=== PATIENT | female | born 1960 | race Caucasian/White ===

== ENCOUNTER → 2021-04-25 | Outpatient (CLI) | payer MEDICARE, BC ==
[~2021-04-25] MED LIST: DAPT500V6 IV; DICY10CA3 PO; INSU100I66 SC; INSU100V35 SC; METR500T PO; MULT-658 PO; OMEP-110 PO; TACR1CAP2 PO; TACR1CAP5 PO; [UNRECOGNIZED DRUG - OTHER] PO
== END | disposition home or self-care (01) ==
LOC: WOUND 13:47
PROVIDERS: ATTEND Internal Medicine
DX: E11.621 Type 2 diabetes mellitus with foot ulcer (principal); L97.412 Non-pressure chronic ulcer of right heel and midfoot with fat layer exposed; L97.512 Non-pressure chronic ulcer of other part of right foot with fat layer exposed; E11.610 Type 2 diabetes mellitus with diabetic neuropathic arthropathy; E11.40 Type 2 diabetes mellitus with diabetic neuropathy, unspecified; D63.1 Anemia in chronic kidney disease; E11.22 Type 2 diabetes mellitus with diabetic chronic kidney disease; N18.6 End stage renal disease; L02.611 Cutaneous abscess of right foot; E11.69 Type 2 diabetes mellitus with other specified complication; M86.8X7 Other osteomyelitis, ankle and foot; A49.01 Methicillin susceptible Staphylococcus aureus infection, unspecified site; Z99.2 Dependence on renal dialysis; Z89.422 Acquired absence of other left toe(s); Z89.421 Acquired absence of other right toe(s); Z89.412 Acquired absence of left great toe; Z92.25 Personal history of immunosuppression therapy; Z20.822 Contact with and (suspected) exposure to COVID-19; Z94.0 Kidney transplant status; Z79.4 Long term (current) use of insulin
CPT/HCPCS: 11042; G0463

== ENCOUNTER 2021-05-02 12:39 | Outpatient (CLI) | payer MEDICARE, BC | END 2021-05-02 23:59 | disposition home or self-care (01) | LOC: WOUND 12:39 | PROVIDERS: ATTEND Internal Medicine | DX: E11.621 Type 2 diabetes mellitus with foot ulcer (principal); L97.412 Non-pressure chronic ulcer of right heel and midfoot with fat layer exposed; L97.512 Non-pressure chronic ulcer of other part of right foot with fat layer exposed; E11.610 Type 2 diabetes mellitus with diabetic neuropathic arthropathy; E11.40 Type 2 diabetes mellitus with diabetic neuropathy, unspecified; D63.1 Anemia in chronic kidney disease; E11.22 Type 2 diabetes mellitus with diabetic chronic kidney disease; N18.6 End stage renal disease; E11.69 Type 2 diabetes mellitus with other specified complication; M86.8X7 Other osteomyelitis, ankle and foot; A49.01 Methicillin susceptible Staphylococcus aureus infection, unspecified site; L84 Corns and callosities; Z99.2 Dependence on renal dialysis; Z89.422 Acquired absence of other left toe(s); Z89.421 Acquired absence of other right toe(s); Z89.412 Acquired absence of left great toe; Z20.822 Contact with and (suspected) exposure to COVID-19; Z92.25 Personal history of immunosuppression therapy; Z79.4 Long term (current) use of insulin; Z94.0 Kidney transplant status | CPT/HCPCS: 11042 ==

== ENCOUNTER → 2021-05-04 | Outpatient (CLI) | payer MEDICARE, BC | END | disposition home or self-care (01) | LOC: WOUND 12:54 | PROVIDERS: ATTEND Internal Medicine | DX: E11.621 Type 2 diabetes mellitus with foot ulcer (principal); L97.412 Non-pressure chronic ulcer of right heel and midfoot with fat layer exposed; L97.512 Non-pressure chronic ulcer of other part of right foot with fat layer exposed; L02.611 Cutaneous abscess of right foot; E11.610 Type 2 diabetes mellitus with diabetic neuropathic arthropathy; E11.40 Type 2 diabetes mellitus with diabetic neuropathy, unspecified; D63.1 Anemia in chronic kidney disease; E11.22 Type 2 diabetes mellitus with diabetic chronic kidney disease; N18.6 End stage renal disease; E11.69 Type 2 diabetes mellitus with other specified complication; M86.8X7 Other osteomyelitis, ankle and foot; A49.01 Methicillin susceptible Staphylococcus aureus infection, unspecified site; Z99.2 Dependence on renal dialysis; Z89.422 Acquired absence of other left toe(s); Z89.421 Acquired absence of other right toe(s); Z89.412 Acquired absence of left great toe; Z92.25 Personal history of immunosuppression therapy; Z20.822 Contact with and (suspected) exposure to COVID-19; Z79.4 Long term (current) use of insulin | CPT/HCPCS: 97602 ==

== ENCOUNTER → 2021-05-06 | Outpatient (CLI) | payer MEDICARE, BC | END | disposition home or self-care (01) | LOC: WOUND 13:24 | PROVIDERS: ATTEND Internal Medicine Cardiovascular Disease | DX: E11.621 Type 2 diabetes mellitus with foot ulcer (principal); L97.411 Non-pressure chronic ulcer of right heel and midfoot limited to breakdown of skin; L97.512 Non-pressure chronic ulcer of other part of right foot with fat layer exposed; E11.610 Type 2 diabetes mellitus with diabetic neuropathic arthropathy; E11.40 Type 2 diabetes mellitus with diabetic neuropathy, unspecified; D63.1 Anemia in chronic kidney disease; E11.22 Type 2 diabetes mellitus with diabetic chronic kidney disease; N18.6 End stage renal disease; E11.69 Type 2 diabetes mellitus with other specified complication; M86.8X7 Other osteomyelitis, ankle and foot; A49.01 Methicillin susceptible Staphylococcus aureus infection, unspecified site; Z99.2 Dependence on renal dialysis; Z89.422 Acquired absence of other left toe(s); Z89.421 Acquired absence of other right toe(s); Z89.412 Acquired absence of left great toe; Z92.25 Personal history of immunosuppression therapy; Z20.822 Contact with and (suspected) exposure to COVID-19; Z79.4 Long term (current) use of insulin; Z94.0 Kidney transplant status | CPT/HCPCS: G0463 ==

== ENCOUNTER → 2021-05-11 | Outpatient (CLI) | payer MEDICARE, BC | END | disposition home or self-care (01) | LOC: WOUND 12:26 | PROVIDERS: ATTEND Internal Medicine | DX: E11.621 Type 2 diabetes mellitus with foot ulcer (principal); L97.415 Non-pressure chronic ulcer of right heel and midfoot with muscle involvement without evidence of necrosis; L97.512 Non-pressure chronic ulcer of other part of right foot with fat layer exposed; E11.610 Type 2 diabetes mellitus with diabetic neuropathic arthropathy; E11.40 Type 2 diabetes mellitus with diabetic neuropathy, unspecified; D63.1 Anemia in chronic kidney disease; E11.22 Type 2 diabetes mellitus with diabetic chronic kidney disease; N18.6 End stage renal disease; E11.69 Type 2 diabetes mellitus with other specified complication; M86.8X7 Other osteomyelitis, ankle and foot; A49.01 Methicillin susceptible Staphylococcus aureus infection, unspecified site; L84 Corns and callosities; Z99.2 Dependence on renal dialysis; Z89.422 Acquired absence of other left toe(s); Z89.421 Acquired absence of other right toe(s); Z89.412 Acquired absence of left great toe; Z92.25 Personal history of immunosuppression therapy; Z20.822 Contact with and (suspected) exposure to COVID-19; Z79.4 Long term (current) use of insulin; Z94.0 Kidney transplant status | CPT/HCPCS: 11043 ==

== ENCOUNTER 2021-05-13 12:53 | Outpatient (CLI) | payer MEDICARE, BC | END 2021-05-13 23:59 | disposition home or self-care (01) | LOC: WOUND 12:53 | PROVIDERS: ATTEND Internal Medicine | DX: E11.621 Type 2 diabetes mellitus with foot ulcer (principal); L97.411 Non-pressure chronic ulcer of right heel and midfoot limited to breakdown of skin; L97.512 Non-pressure chronic ulcer of other part of right foot with fat layer exposed; L02.611 Cutaneous abscess of right foot; L84 Corns and callosities; E11.40 Type 2 diabetes mellitus with diabetic neuropathy, unspecified; E11.610 Type 2 diabetes mellitus with diabetic neuropathic arthropathy; E11.69 Type 2 diabetes mellitus with other specified complication; M86.8X7 Other osteomyelitis, ankle and foot; E11.22 Type 2 diabetes mellitus with diabetic chronic kidney disease; D63.8 Anemia in other chronic diseases classified elsewhere; N18.6 End stage renal disease; E78.00 Pure hypercholesterolemia, unspecified; D63.1 Anemia in chronic kidney disease; A49.01 Methicillin susceptible Staphylococcus aureus infection, unspecified site; Z94.83 Pancreas transplant status; Z86.19 Personal history of other infectious and parasitic diseases; Z94.0 Kidney transplant status; Z99.2 Dependence on renal dialysis; Z89.422 Acquired absence of other left toe(s); Z89.412 Acquired absence of left great toe; Z89.421 Acquired absence of other right toe(s); Z79.4 Long term (current) use of insulin; Z79.899 Other long term (current) drug therapy; Z20.822 Contact with and (suspected) exposure to COVID-19 | CPT/HCPCS: G0463 ==

== ENCOUNTER 2021-05-16 12:45 | Outpatient (CLI) | payer MEDICARE, BC | END 2021-05-16 23:59 | disposition home or self-care (01) | LOC: WOUND 12:45 | PROVIDERS: ATTEND Internal Medicine | DX: E11.621 Type 2 diabetes mellitus with foot ulcer (principal); L97.411 Non-pressure chronic ulcer of right heel and midfoot limited to breakdown of skin; L97.512 Non-pressure chronic ulcer of other part of right foot with fat layer exposed; L84 Corns and callosities; E11.40 Type 2 diabetes mellitus with diabetic neuropathy, unspecified; E11.610 Type 2 diabetes mellitus with diabetic neuropathic arthropathy; E11.69 Type 2 diabetes mellitus with other specified complication; M86.8X7 Other osteomyelitis, ankle and foot; E11.22 Type 2 diabetes mellitus with diabetic chronic kidney disease; D63.8 Anemia in other chronic diseases classified elsewhere; N18.6 End stage renal disease; E78.00 Pure hypercholesterolemia, unspecified; D63.1 Anemia in chronic kidney disease; A49.01 Methicillin susceptible Staphylococcus aureus infection, unspecified site; Z94.83 Pancreas transplant status; Z86.19 Personal history of other infectious and parasitic diseases; Z94.0 Kidney transplant status; Z99.2 Dependence on renal dialysis; Z89.422 Acquired absence of other left toe(s); Z89.412 Acquired absence of left great toe; Z89.421 Acquired absence of other right toe(s); Z79.4 Long term (current) use of insulin; Z79.899 Other long term (current) drug therapy; Z20.822 Contact with and (suspected) exposure to COVID-19 | CPT/HCPCS: G0463 ==

== ENCOUNTER 2021-05-18 12:47 | Outpatient (CLI) | payer MEDICARE, BC | END 2021-05-18 23:59 | disposition home or self-care (01) | LOC: WOUND 12:47 | PROVIDERS: ATTEND Internal Medicine | DX: E11.621 Type 2 diabetes mellitus with foot ulcer (principal); L97.411 Non-pressure chronic ulcer of right heel and midfoot limited to breakdown of skin; L97.512 Non-pressure chronic ulcer of other part of right foot with fat layer exposed; E11.610 Type 2 diabetes mellitus with diabetic neuropathic arthropathy; E11.40 Type 2 diabetes mellitus with diabetic neuropathy, unspecified; D63.1 Anemia in chronic kidney disease; E11.22 Type 2 diabetes mellitus with diabetic chronic kidney disease; N18.6 End stage renal disease; E11.69 Type 2 diabetes mellitus with other specified complication; M86.8X7 Other osteomyelitis, ankle and foot; A49.01 Methicillin susceptible Staphylococcus aureus infection, unspecified site; L84 Corns and callosities; Z99.2 Dependence on renal dialysis; Z89.422 Acquired absence of other left toe(s); Z89.421 Acquired absence of other right toe(s); Z89.412 Acquired absence of left great toe; Z92.25 Personal history of immunosuppression therapy; Z20.822 Contact with and (suspected) exposure to COVID-19; Z79.4 Long term (current) use of insulin; Z94.0 Kidney transplant status | CPT/HCPCS: 97597 ==

== ENCOUNTER → 2021-05-20 | Outpatient (CLI) | payer MEDICARE, BC | END | disposition home or self-care (01) | LOC: WOUND 12:42 | PROVIDERS: ATTEND Internal Medicine | DX: E11.621 Type 2 diabetes mellitus with foot ulcer (principal); L97.411 Non-pressure chronic ulcer of right heel and midfoot limited to breakdown of skin; L97.512 Non-pressure chronic ulcer of other part of right foot with fat layer exposed; E11.610 Type 2 diabetes mellitus with diabetic neuropathic arthropathy; E11.40 Type 2 diabetes mellitus with diabetic neuropathy, unspecified; D63.1 Anemia in chronic kidney disease; E11.22 Type 2 diabetes mellitus with diabetic chronic kidney disease; N18.6 End stage renal disease; E11.69 Type 2 diabetes mellitus with other specified complication; M86.8X7 Other osteomyelitis, ankle and foot; A49.01 Methicillin susceptible Staphylococcus aureus infection, unspecified site; L84 Corns and callosities; Z99.2 Dependence on renal dialysis; Z89.422 Acquired absence of other left toe(s); Z89.421 Acquired absence of other right toe(s); Z89.412 Acquired absence of left great toe; Z20.822 Contact with and (suspected) exposure to COVID-19; Z79.4 Long term (current) use of insulin | CPT/HCPCS: G0463 ==

== ENCOUNTER → 2021-05-24 | Outpatient (CLI) | payer MEDICARE, BC | END | disposition home or self-care (01) | LOC: WOUND 14:35 | PROVIDERS: ATTEND Nurse Practitioner Family | DX: E11.621 Type 2 diabetes mellitus with foot ulcer (principal); L97.411 Non-pressure chronic ulcer of right heel and midfoot limited to breakdown of skin; L97.512 Non-pressure chronic ulcer of other part of right foot with fat layer exposed; L02.611 Cutaneous abscess of right foot; E11.610 Type 2 diabetes mellitus with diabetic neuropathic arthropathy; E11.40 Type 2 diabetes mellitus with diabetic neuropathy, unspecified; D63.1 Anemia in chronic kidney disease; E11.22 Type 2 diabetes mellitus with diabetic chronic kidney disease; N18.6 End stage renal disease; E11.69 Type 2 diabetes mellitus with other specified complication; M86.8X7 Other osteomyelitis, ankle and foot; A49.01 Methicillin susceptible Staphylococcus aureus infection, unspecified site; L84 Corns and callosities; Z99.2 Dependence on renal dialysis; Z89.422 Acquired absence of other left toe(s); Z89.421 Acquired absence of other right toe(s); Z89.412 Acquired absence of left great toe; Z20.822 Contact with and (suspected) exposure to COVID-19; Z92.25 Personal history of immunosuppression therapy; Z79.4 Long term (current) use of insulin; Z94.0 Kidney transplant status | CPT/HCPCS: 97597 ==

== ENCOUNTER 2021-05-27 12:52 | Outpatient (CLI) | payer MEDICARE, BC | END 2021-05-27 23:59 | disposition home or self-care (01) | LOC: WOUND 12:52 | PROVIDERS: ATTEND Internal Medicine | DX: E11.621 Type 2 diabetes mellitus with foot ulcer (principal); L97.411 Non-pressure chronic ulcer of right heel and midfoot limited to breakdown of skin; L97.512 Non-pressure chronic ulcer of other part of right foot with fat layer exposed; E11.610 Type 2 diabetes mellitus with diabetic neuropathic arthropathy; E11.40 Type 2 diabetes mellitus with diabetic neuropathy, unspecified; D63.1 Anemia in chronic kidney disease; E11.22 Type 2 diabetes mellitus with diabetic chronic kidney disease; N18.6 End stage renal disease; E11.69 Type 2 diabetes mellitus with other specified complication; M86.8X7 Other osteomyelitis, ankle and foot; A49.01 Methicillin susceptible Staphylococcus aureus infection, unspecified site; L84 Corns and callosities; Z99.2 Dependence on renal dialysis; Z89.422 Acquired absence of other left toe(s); Z89.421 Acquired absence of other right toe(s); Z89.412 Acquired absence of left great toe; Z20.822 Contact with and (suspected) exposure to COVID-19; Z92.25 Personal history of immunosuppression therapy; Z79.4 Long term (current) use of insulin; Z94.0 Kidney transplant status | CPT/HCPCS: G0463 ==

== ENCOUNTER 2021-06-07 12:55 | Outpatient (CLI) | payer MEDICARE, BC | END 2021-06-07 23:59 | disposition home or self-care (01) | LOC: WOUND 12:55 | PROVIDERS: ATTEND Nurse Practitioner Family | DX: E11.621 Type 2 diabetes mellitus with foot ulcer (principal); L97.411 Non-pressure chronic ulcer of right heel and midfoot limited to breakdown of skin; L97.512 Non-pressure chronic ulcer of other part of right foot with fat layer exposed; L02.611 Cutaneous abscess of right foot; E11.610 Type 2 diabetes mellitus with diabetic neuropathic arthropathy; E11.40 Type 2 diabetes mellitus with diabetic neuropathy, unspecified; D63.1 Anemia in chronic kidney disease; E11.22 Type 2 diabetes mellitus with diabetic chronic kidney disease; N18.6 End stage renal disease; E11.69 Type 2 diabetes mellitus with other specified complication; M86.8X7 Other osteomyelitis, ankle and foot; A49.01 Methicillin susceptible Staphylococcus aureus infection, unspecified site; L84 Corns and callosities; Z99.2 Dependence on renal dialysis; Z89.422 Acquired absence of other left toe(s); Z89.421 Acquired absence of other right toe(s); Z89.412 Acquired absence of left great toe; Z20.822 Contact with and (suspected) exposure to COVID-19; Z92.25 Personal history of immunosuppression therapy; Z79.4 Long term (current) use of insulin; Z94.0 Kidney transplant status | CPT/HCPCS: 15275; Q4133 ==

== ENCOUNTER 2021-06-14 15:24 | Outpatient (CLI) | payer MEDICARE, BC | END 2021-06-14 23:59 | disposition home or self-care (01) | LOC: WOUND 15:24 | PROVIDERS: ATTEND Nurse Practitioner Family | DX: E11.621 Type 2 diabetes mellitus with foot ulcer (principal); L97.512 Non-pressure chronic ulcer of other part of right foot with fat layer exposed; L97.411 Non-pressure chronic ulcer of right heel and midfoot limited to breakdown of skin; L02.611 Cutaneous abscess of right foot; L84 Corns and callosities; E11.40 Type 2 diabetes mellitus with diabetic neuropathy, unspecified; E11.610 Type 2 diabetes mellitus with diabetic neuropathic arthropathy; E11.69 Type 2 diabetes mellitus with other specified complication; M86.8X7 Other osteomyelitis, ankle and foot; E11.22 Type 2 diabetes mellitus with diabetic chronic kidney disease; D63.8 Anemia in other chronic diseases classified elsewhere; N18.6 End stage renal disease; E78.00 Pure hypercholesterolemia, unspecified; D63.1 Anemia in chronic kidney disease; A49.01 Methicillin susceptible Staphylococcus aureus infection, unspecified site; Z94.83 Pancreas transplant status; Z86.19 Personal history of other infectious and parasitic diseases; Z94.0 Kidney transplant status; Z99.2 Dependence on renal dialysis; Z89.422 Acquired absence of other left toe(s); Z89.412 Acquired absence of left great toe; Z89.421 Acquired absence of other right toe(s); Z79.4 Long term (current) use of insulin; Z79.899 Other long term (current) drug therapy; Z20.822 Contact with and (suspected) exposure to COVID-19 | CPT/HCPCS: 15275; Q4133 ==

== ENCOUNTER 2021-06-21 14:45 | Outpatient (CLI) | payer MEDICARE, BC | END 2021-06-21 23:59 | disposition home or self-care (01) | LOC: WOUND 14:45 | PROVIDERS: ATTEND Nurse Practitioner Family | DX: E11.621 Type 2 diabetes mellitus with foot ulcer (principal); L97.512 Non-pressure chronic ulcer of other part of right foot with fat layer exposed; L97.411 Non-pressure chronic ulcer of right heel and midfoot limited to breakdown of skin; L02.611 Cutaneous abscess of right foot; L84 Corns and callosities; E11.40 Type 2 diabetes mellitus with diabetic neuropathy, unspecified; E11.610 Type 2 diabetes mellitus with diabetic neuropathic arthropathy; E11.69 Type 2 diabetes mellitus with other specified complication; M86.8X7 Other osteomyelitis, ankle and foot; E11.22 Type 2 diabetes mellitus with diabetic chronic kidney disease; D63.8 Anemia in other chronic diseases classified elsewhere; N18.6 End stage renal disease; E78.00 Pure hypercholesterolemia, unspecified; D63.1 Anemia in chronic kidney disease; A49.01 Methicillin susceptible Staphylococcus aureus infection, unspecified site; Z94.83 Pancreas transplant status; Z86.19 Personal history of other infectious and parasitic diseases; Z94.0 Kidney transplant status; Z99.2 Dependence on renal dialysis; Z89.422 Acquired absence of other left toe(s); Z89.412 Acquired absence of left great toe; Z89.421 Acquired absence of other right toe(s); Z79.4 Long term (current) use of insulin; Z79.899 Other long term (current) drug therapy; Z20.822 Contact with and (suspected) exposure to COVID-19 | CPT/HCPCS: 15275; Q4133 ==

== ENCOUNTER 2021-06-28 13:38 | Outpatient (CLI) | payer MEDICARE, BC | END 2021-06-28 23:59 | disposition home or self-care (01) | LOC: WOUND 13:38 | PROVIDERS: ATTEND Nurse Practitioner Family | DX: E11.621 Type 2 diabetes mellitus with foot ulcer (principal); L97.411 Non-pressure chronic ulcer of right heel and midfoot limited to breakdown of skin; L97.512 Non-pressure chronic ulcer of other part of right foot with fat layer exposed; L02.611 Cutaneous abscess of right foot; E11.610 Type 2 diabetes mellitus with diabetic neuropathic arthropathy; E11.40 Type 2 diabetes mellitus with diabetic neuropathy, unspecified; D63.1 Anemia in chronic kidney disease; E11.22 Type 2 diabetes mellitus with diabetic chronic kidney disease; N18.6 End stage renal disease; E11.69 Type 2 diabetes mellitus with other specified complication; M86.8X7 Other osteomyelitis, ankle and foot; A49.01 Methicillin susceptible Staphylococcus aureus infection, unspecified site; L84 Corns and callosities; Z99.2 Dependence on renal dialysis; Z89.422 Acquired absence of other left toe(s); Z89.421 Acquired absence of other right toe(s); Z89.412 Acquired absence of left great toe; Z20.822 Contact with and (suspected) exposure to COVID-19; Z92.25 Personal history of immunosuppression therapy; Z79.4 Long term (current) use of insulin; Z94.0 Kidney transplant status | CPT/HCPCS: 15275; Q4133; G0277 ==

== ENCOUNTER 2021-07-05 14:22 | Outpatient (CLI) | payer MEDICARE, BC | END 2021-07-05 23:59 | disposition home or self-care (01) | LOC: WOUND 14:22 | PROVIDERS: ATTEND Nurse Practitioner Family | DX: E11.621 Type 2 diabetes mellitus with foot ulcer (principal); L97.411 Non-pressure chronic ulcer of right heel and midfoot limited to breakdown of skin; L97.512 Non-pressure chronic ulcer of other part of right foot with fat layer exposed; L02.611 Cutaneous abscess of right foot; E11.610 Type 2 diabetes mellitus with diabetic neuropathic arthropathy; E11.40 Type 2 diabetes mellitus with diabetic neuropathy, unspecified; D63.1 Anemia in chronic kidney disease; E11.22 Type 2 diabetes mellitus with diabetic chronic kidney disease; N18.6 End stage renal disease; E11.69 Type 2 diabetes mellitus with other specified complication; M86.8X7 Other osteomyelitis, ankle and foot; A49.01 Methicillin susceptible Staphylococcus aureus infection, unspecified site; L84 Corns and callosities; Z99.2 Dependence on renal dialysis; Z89.422 Acquired absence of other left toe(s); Z89.421 Acquired absence of other right toe(s); Z89.412 Acquired absence of left great toe; Z20.822 Contact with and (suspected) exposure to COVID-19; Z92.25 Personal history of immunosuppression therapy; Z79.4 Long term (current) use of insulin; Z94.0 Kidney transplant status | CPT/HCPCS: 15275; Q4133; G0277 ==

== ENCOUNTER 2021-07-08 11:26 | Outpatient (CLI) | payer MEDICARE, BC ==
[2021-07-08 11:45] LABS: BASOPHILS % (AUTO) 1 % (0-1); EOSINOPHILS % (AUTO) 3 % (1-7); LYMPHOCYTES % (AUTO) 25 % (22-44); MEAN CORPUSCULAR HEMOGLOBIN 31.6 pg (27.0-34.8); MEAN CORPUSCULAR HGB CONC 33.5 g/dL (32.4-35.8); MEAN PLATELET VOLUME 7.4 fL (7.4-10.4); MONOCYTES % (AUTO) 10 % (2-9); NEUTROPHILS % (AUTO) 62 % (42-75); PLATELET COUNT 231 x10^3/uL (130-400); RED BLOOD COUNT 3.36 x10^6/uL (3.82-5.3); RED CELL DISTRIBUTION WIDTH 16.4 % (9.6-15.2)
[2021-07-08 11:51] LABS: CALCIUM 9.1 mg/dL (8.5-10.1)
[2021-07-08 11:57] LABS: ALBUMIN 2.8 g/dL (3.4-5.0); ANION GAP 6 mmol/L (5-15); CHLORIDE 112 mmol/L (98-107)
[2021-07-08 11:59] LABS: % IRON SATURATION 83 % (20-55); ALANINE AMINOTRANSFERASE 31 U/L (12-78); ALKALINE PHOSPHATASE 86 U/L (45-117); BILIRUBIN,TOTAL 0.3 mg/dL (0.2-1.0); CREATININE 2.29 mg/dL (0.55-1.02); IRON LEVEL 95 mcg/dL (50-170); TOTAL IRON BINDING CAPACITY 115 mcg/dL (250-450)
[2021-07-08 12:12] LABS: MICROSCOPIC AUTO
[2021-07-08 13:05] LABS: CREATININE,URINE RANDOM 32.8 mg/dL
== END 2021-07-08 23:59 | disposition home or self-care (01) ==
LOC: LAB 11:26
PROVIDERS: ATTEND Internal Medicine Nephrology
DX: N18.4 Chronic kidney disease, stage 4 (severe) (principal); R30.0 Dysuria; E87.5 Hyperkalemia; N39.0 Urinary tract infection, site not specified; E78.00 Pure hypercholesterolemia, unspecified; D63.8 Anemia in other chronic diseases classified elsewhere; Z94.0 Kidney transplant status; R79.9 Abnormal finding of blood chemistry, unspecified
CPT/HCPCS: 36415; 80053; 80197; 81001; 82043; 82306; 82310; 82570; 82728; 83036; 83540; 83550; 83735; 83970; 84100; 84156; 84550; 85025; 87086

== ENCOUNTER 2021-07-12 15:03 | Outpatient (CLI) | payer MEDICARE, BC | END 2021-07-12 23:59 | disposition home or self-care (01) | LOC: WOUND 15:03 | PROVIDERS: ATTEND Nurse Practitioner Family | DX: E11.621 Type 2 diabetes mellitus with foot ulcer (principal); L97.512 Non-pressure chronic ulcer of other part of right foot with fat layer exposed; L97.411 Non-pressure chronic ulcer of right heel and midfoot limited to breakdown of skin; L84 Corns and callosities; E11.40 Type 2 diabetes mellitus with diabetic neuropathy, unspecified; L02.611 Cutaneous abscess of right foot; E11.610 Type 2 diabetes mellitus with diabetic neuropathic arthropathy; E11.69 Type 2 diabetes mellitus with other specified complication; M86.9 Osteomyelitis, unspecified; E11.22 Type 2 diabetes mellitus with diabetic chronic kidney disease; N18.6 End stage renal disease; D63.8 Anemia in other chronic diseases classified elsewhere; E78.00 Pure hypercholesterolemia, unspecified; D63.1 Anemia in chronic kidney disease; M86.8X7 Other osteomyelitis, ankle and foot; Z94.83 Pancreas transplant status; Z86.19 Personal history of other infectious and parasitic diseases; Z94.0 Kidney transplant status; Z89.412 Acquired absence of left great toe; Z99.2 Dependence on renal dialysis; Z89.422 Acquired absence of other left toe(s); Z79.4 Long term (current) use of insulin; Z89.421 Acquired absence of other right toe(s); Z79.899 Other long term (current) drug therapy | CPT/HCPCS: 15275; Q4133 ==

== ENCOUNTER 2021-07-19 12:41 | Outpatient (CLI) | payer MEDICARE, BC | END 2021-07-19 23:59 | disposition home or self-care (01) | LOC: WOUND 12:41 | PROVIDERS: ATTEND Nurse Practitioner Family | DX: E11.621 Type 2 diabetes mellitus with foot ulcer (principal); L97.512 Non-pressure chronic ulcer of other part of right foot with fat layer exposed; L97.411 Non-pressure chronic ulcer of right heel and midfoot limited to breakdown of skin; L02.611 Cutaneous abscess of right foot; L84 Corns and callosities; E11.40 Type 2 diabetes mellitus with diabetic neuropathy, unspecified; E11.610 Type 2 diabetes mellitus with diabetic neuropathic arthropathy; E11.69 Type 2 diabetes mellitus with other specified complication; M86.8X7 Other osteomyelitis, ankle and foot; E11.22 Type 2 diabetes mellitus with diabetic chronic kidney disease; D63.8 Anemia in other chronic diseases classified elsewhere; N18.6 End stage renal disease; E78.00 Pure hypercholesterolemia, unspecified; D63.1 Anemia in chronic kidney disease; A49.01 Methicillin susceptible Staphylococcus aureus infection, unspecified site; Z94.83 Pancreas transplant status; Z86.19 Personal history of other infectious and parasitic diseases; Z94.0 Kidney transplant status; Z99.2 Dependence on renal dialysis; Z89.422 Acquired absence of other left toe(s); Z89.412 Acquired absence of left great toe; Z89.421 Acquired absence of other right toe(s); Z79.4 Long term (current) use of insulin; Z79.899 Other long term (current) drug therapy; Z20.822 Contact with and (suspected) exposure to COVID-19 | CPT/HCPCS: 15275; Q4133 ==

== ENCOUNTER → 2021-07-26 | Outpatient (CLI) | payer MEDICARE, BC | END | disposition home or self-care (01) | LOC: WOUND 12:33 | PROVIDERS: ATTEND Nurse Practitioner Family | DX: E11.621 Type 2 diabetes mellitus with foot ulcer (principal); L97.512 Non-pressure chronic ulcer of other part of right foot with fat layer exposed; L97.411 Non-pressure chronic ulcer of right heel and midfoot limited to breakdown of skin; L02.611 Cutaneous abscess of right foot; L84 Corns and callosities; E11.40 Type 2 diabetes mellitus with diabetic neuropathy, unspecified; E11.610 Type 2 diabetes mellitus with diabetic neuropathic arthropathy; E11.69 Type 2 diabetes mellitus with other specified complication; M86.8X7 Other osteomyelitis, ankle and foot; E11.22 Type 2 diabetes mellitus with diabetic chronic kidney disease; D63.8 Anemia in other chronic diseases classified elsewhere; N18.6 End stage renal disease; E78.00 Pure hypercholesterolemia, unspecified; D63.1 Anemia in chronic kidney disease; A49.01 Methicillin susceptible Staphylococcus aureus infection, unspecified site; Z94.83 Pancreas transplant status; Z86.19 Personal history of other infectious and parasitic diseases; Z94.0 Kidney transplant status; Z99.2 Dependence on renal dialysis; Z89.422 Acquired absence of other left toe(s); Z89.412 Acquired absence of left great toe; Z89.421 Acquired absence of other right toe(s); Z79.4 Long term (current) use of insulin; Z79.899 Other long term (current) drug therapy; Z20.822 Contact with and (suspected) exposure to COVID-19 | CPT/HCPCS: 15275; Q4133 ==

== ENCOUNTER → 2021-08-02 | Outpatient (CLI) | payer MEDICARE, BC | END | disposition home or self-care (01) | LOC: WOUND 13:52 | PROVIDERS: ATTEND Nurse Practitioner Family | DX: E11.621 Type 2 diabetes mellitus with foot ulcer (principal); L97.411 Non-pressure chronic ulcer of right heel and midfoot limited to breakdown of skin; L97.512 Non-pressure chronic ulcer of other part of right foot with fat layer exposed; L02.611 Cutaneous abscess of right foot; L84 Corns and callosities; E11.40 Type 2 diabetes mellitus with diabetic neuropathy, unspecified; E11.610 Type 2 diabetes mellitus with diabetic neuropathic arthropathy; E11.69 Type 2 diabetes mellitus with other specified complication; M86.8X7 Other osteomyelitis, ankle and foot; E11.22 Type 2 diabetes mellitus with diabetic chronic kidney disease; D63.8 Anemia in other chronic diseases classified elsewhere; N18.6 End stage renal disease; E78.00 Pure hypercholesterolemia, unspecified; D63.1 Anemia in chronic kidney disease; A49.01 Methicillin susceptible Staphylococcus aureus infection, unspecified site; Z94.83 Pancreas transplant status; Z86.19 Personal history of other infectious and parasitic diseases; Z94.0 Kidney transplant status; Z99.2 Dependence on renal dialysis; Z89.422 Acquired absence of other left toe(s); Z89.412 Acquired absence of left great toe; Z89.421 Acquired absence of other right toe(s); Z79.4 Long term (current) use of insulin; Z79.899 Other long term (current) drug therapy; Z20.822 Contact with and (suspected) exposure to COVID-19 ==